=== PATIENT | female | born 1995 | race Caucasian/White ===

== ENCOUNTER 2018-06-28 07:44 | Inpatient (IN) ==
[2018-06-28] MEDS ORDERED: RINGER'S SOLUTION,LACTATED 1,000 ML IV ONE (07:58)
[2018-06-28] MEDS ORDERED: PENICILLIN G POTASSIUM 5 MILLIONUNT in DEXTROSE 5 % IN WATER 100 ML IV ONE ×2 (07:58)
[2018-06-28] MEDS ORDERED: OXYTOCIN/DEXTROSE 5%-WATER 30 UNITS/500 ML BAG IV ONE (07:58)
[2018-06-28 08:16] LABS: Hematocrit 38.7 % (37.0-47.0); Hemoglobin 12.8 gm/dL (12.5-16.0); Mean Cell Volume 94.2 fl (78-100); Mean Corpuscular Hemoglobin 31.1 pg (27-31); Mean Corpuscular Hgb Conc 33.1 g/dl (32-36); Mean Platelet Volume 10.7 fl (8-12.5); Neutrophil # 5.8 K/mm3 (1.3-6.0); Neutrophil % 86.3 % (42-75.0); Platelet Count 202 K/mm3 (150-450); Red Blood Count 4.11 M/mm3 (4.2-5.4); Red Cell Distribution Width 13.1 % (11.5-14.0); White Blood Count 6.7 K/mm3 (4.0-10.5)
[2018-06-28 09:28] LABS: Cocaine Ur Negative (NEGATIVE); Urine Barbiturate Negative (NEGATIVE); Urine Benzodiazepines Negative (NEGATIVE); Urine Opiates Negative (NEGATIVE); Urine PCP Negative (NEGATIVE); Urine THC Negative (NEGATIVE)
--- NOTE | 2018-06-28 10:21 | HP ---
Chief Complaint - Chief Complaint Date of Service: 06/28/18 Chief Complaint: water broke History of Present Illness: 22 yo, CF, G1 at 40.0 weeks by a ultrasound at 7.6 weeks with EDC of 06/28/18. Patient presented to the birthplace believing her water has broken. She woke up this morning feeling gush of fluid. Denies bleeding or contractions. is uncomplicated except history of hypothyroidism on levothyroxine 50 mcg daily and morbid obesity with a BMI of 48.1. At the birthplace, rupture of membrane was confirmed by amniotest. Her exam was 1 cm, 60% and -3. Presentation was cephalic by a bedside u/s. Her GBS was positive per urine culture. Blood type: O positive. Rubella: immune Medical History (Last Reviewed 05/07/18 @ 09:07 by Elias Wolfe RN) Irregular menses Onset Date: ~11/15/17 Acquired hypothyroidism Onset Date: 11/15/17 BMI 45.0-49.9, adult Onset Date: ~11/15/17 Bacterial vaginosis Onset Date: Unknown Dog bite of face Onset Date: ~2001 stitches H/O wisdom tooth extraction Onset Date: ~2016 Family History: Family History (Last Reviewed 05/07/18 @ 09:07 by Elias Wolfe RN) Aunt Cancer breast Grandmother Cancer breast Father Diabetes Mother Cancer cervical Social History: Preferred Language Yakut Smoking Status Never smoker (Last Updated 06/27/18 @ 11:06 by Jelena Faustin MD) Social History: denied use of tobacco, alcohol or drug. Review Of Systems (GEN) - Review of Systems Genitourinary: Present: Other - leaking fluid Misc: All systems neg except as marked Allergies/Adverse Reactions: Allergies Allergy/AdvReac Type Severity Reaction Status Date / Time No Known Allergies Allergy Verified 06/27/18 10:48 Home Medications: HOME MEDICATIONS vitamin,calcium,pvovfucc-wqek-gswsr acid tablet 1 tab PO DAILY 01/03/18 [Last Taken 06/27/18 08:00] levothyroxine 50 mcg tablet 50 mcg PO DAILY #30 tab 03/21/18 [Last Taken 06/27/18 22:00] Exam - Exam Vital Signs: Vital Signs - Last Taken Temp 36 C 06/28/18 08:54 Pulse 100 06/28/18 08:54 Resp 18 06/28/18 08:54 BP 137/77 06/28/18 08:54 Pulse Ox 97 06/28/18 08:54 Constitutional: Present: Alert, Oriented x3, Cooperative, No distress Neck: Present: supple Back Exam: Present: no CVA tenderness Respiratory: Present: lungs clear, normal breath sounds, no respiratory distress Cardiovascular/Chest: Present: regular rate, rhythm, no murmur Abdomen: Present: soft, nontender, nondistended, other - gravid /Rectal: Present: Other - cervix: 1 cm, 60% and -3 Extremity: Present: normal range of motion, no calf tenderness, lower extremity edema - 1+ bilaterally Skin Exam: Present: normal color, warm/dry, no cyanosis Appearance: Present: appropriate appearance Eye contact: Present: cooperative, good eye contact, normal speech Diagnostic Studies: Abnormal Lab Results 06/28/18 Range/Units 08:10 RBC 4.11 L (4.2-5.4) M/mm3 MCH 31.1 H (27-31) pg Neutrophils % 86.3 H (42-75.0) % Lymphocytes % 7.6 L (20-51) % Lymphocytes # 0.51 L (1.5-3.5) k/mm3 Laboratory Results WBC 6.7 K/mm3 (4.0-10.5) 06/28/18 08:10 RBC 4.11 M/mm3 (4.2-5.4) L 06/28/18 08:10 Hgb 12.8 gm/dL (12.5-16.0) 06/28/18 08:10 Hct 38.7 % (37.0-47.0) 06/28/18 08:10 MCV 94.2 fl (78-100) 06/28/18 08:10 MCH 31.1 pg (27-31) H 06/28/18 08:10 MCHC 33.1 g/dl (32-36) 06/28/18 08:10 RDW 13.1 % (11.5-14.0) 06/28/18 08:10 Plt Count 202 K/mm3 (150-450) 06/28/18 08:10 MPV 10.7 fl (8-12.5) 06/28/18 08:10 Immature Gran % (Auto) 0.40 % (0.001-0.429) 06/28/18 08:10 Immature Gran # (Auto) 0.03 K/mm3 (0.000-0.0310) 06/28/18 08:10 Neutrophils % 86.3 % (42-75.0) H 06/28/18 08:10 Lymphocytes % 7.6 % (20-51) L 06/28/18 08:10 Monocytes % 5.7 % (0.0-9) 06/28/18 08:10 Eosinophils % 0.0 % (0.0-3.0) 06/28/18 08:10 Basophils % 0.0 % (0.0-1.0) 06/28/18 08:10 Nucleated RBC % 0.0 k/mm3 (0-1) 06/28/18 08:10 Neutrophils # 5.8 K/mm3 (1.3-6.0) 06/28/18 08:10 Lymphocytes # 0.51 k/mm3 (1.5-3.5) L 06/28/18 08:10 Monocytes # 0.4 k/mm3 (0.0-1.0) 06/28/18 08:10 Eosinophils # 0.0 k/mm3 (0.0-0.7) 06/28/18 08:10 Absolute Basophils 0.0 k/mm3 (0.0-0.1) 06/28/18 08:10 Urine Opiates Screen Negative (NEGATIVE) 06/28/18 09:19 Barbiturate Screen Negative (NEGATIVE) 06/28/18 09:19 Ur Phencyclidine Scrn Negative (NEGATIVE) 06/28/18 09:19 Urine Amphetamine Negative (NEGATIVE) 06/28/18 09:19 U Benzodiazepines Scrn Negative (NEGATIVE) 06/28/18 09:19 Urine Cocaine Screen Negative (NEGATIVE) 06/28/18 09:19 Urine Marijuana (THC) Negative (NEGATIVE) 06/28/18 09:19 Blood Type O Positive 06/28/18 08:10 Antibody Screen Negative 06/28/18 08:10 FHR: reassuring, cat I, 125s, with accels and no decels. [place]: occasional contractions. Assessment/Plan - Narrative Narrative: A: 22 yo, CF, G1 at 40 weeks, with SROM, dilated to 1 cm, GBS postive. Morbid obesity BMI 48. Plan: pitocin for induction of labor. penicillin for GBS prophylaxis. may have epidural if desired. Joni Simmons MD
[2018-06-28] MEDS: PENICILLIN G POTASSIUM 2.5 MILLIONUNT in DEXTROSE 5 % IN WATER 100 ML IV SCH ×8 (13:00→23:50)
[2018-06-28] MEDS ORDERED: ONDANSETRON HCL/PF 2 MG/ML VIAL IV PRN ×2 (13:29→14:43)
[2018-06-28] MEDS ORDERED: BUPIVACAINE HCL/0.9 % NACL/PF 250 ML EP PRN (14:43)
[2018-06-28] MEDS ORDERED: NALOXONE HCL 1 MG/1 ML SYRG IV PRN (14:43)
[2018-06-28] MEDS ORDERED: fentaNYL CITRATE/PF 50 MCG/ML AMPUL IT SCH (14:45)
--- NOTE | 2018-06-28 15:49 | ANES ---
Anesthesia Pre Procedure Eval Vitals/Labs: Last Vital Signs Temp 36 C 06/28/18 08:54 Pulse 100 06/28/18 08:54 Resp 18 06/28/18 08:54 BP 137/77 06/28/18 08:54 Pulse Ox 97 06/28/18 08:54 HOME MEDICATIONS vitamin,calcium,qvcogaif-kwnd-ldqyt acid tablet 1 tab PO DAILY 01/03/18 [Last Taken 06/27/18 08:00] levothyroxine 50 mcg tablet 50 mcg PO DAILY #30 tab 03/21/18 [Last Taken 06/27/18 22:00] Allergies/Adverse Reactions: Allergies Allergy/AdvReac Type Severity Reaction Status Date / Time No Known Allergies Allergy Verified 06/27/18 10:48 - Planned Procedure Planned Procedure: ACTIVE LABOR Medication List Reviewed:: Yes Allergies Verified: Yes Medical History (Last Reviewed 06/28/18 @ 15:48 by Levi Olivia CRNA) Irregular menses Onset Date: ~11/15/17 Acquired hypothyroidism Onset Date: 11/15/17 BMI 45.0-49.9, adult Onset Date: ~11/15/17 Bacterial vaginosis Onset Date: Unknown Dog bite of face Onset Date: ~2001 stitches H/O wisdom tooth extraction Onset Date: ~2016 Family History (Last Reviewed 06/28/18 @ 15:48 by Levi Olivia CRNA) Aunt Cancer breast Grandmother Cancer breast Father Diabetes Mother Cancer cervical - Family Anesthesia History Family History:: no untoward family reactions to anesthesia - Airway/Neck/Teeth Within Normal Limits:: Yes Teeth Condition: intact Neck Exam: full range of motion Mallampatti Score: 2 Thyromental (T-M) distance: > 6 cm Mandibulo Hyoid distance: > 3 cm - Respiratory Respiratory Physical: lungs clear Smoking Status: Never smoker Sleep Apnea currently treated: No Sleep Apnea by current assessment: No - Cardiovascular Tolerate Activity: Fair Heart Sounds: S1 & S2, Regular - Anesthesia Assessment and Plan ASA Class: PS, II, E Anesthesia Type Plan: Epidural
--- NOTE | 2018-06-28 15:49 | ANES ---
Post Anesthesia Discharge - Transfer of Care Transfer of Care handoff given to nurse: Yes - Anesthesia Post Op Note Anesthesia Post Op Note: Care transferred to OB RN
--- NOTE | 2018-06-28 15:49 | ANES ---
Post Anesthesia Assessment - Vital Signs Vitals: Last Vital Signs Temp 36 C 06/28/18 08:54 Pulse 100 06/28/18 08:54 Resp 18 06/28/18 08:54 BP 137/77 06/28/18 08:54 Pulse Ox 97 06/28/18 08:54 Airway Patency: Normal - Mental Status Level Of Consciousness: Awake - Pain Level Pain Score: 2 - N/V Assessment Nausea/Vomiting Presence: None Dehydration:: No
--- NOTE | 2018-06-28 15:51 | ANES ---
Anesthesia Procedure Note Procedure Note: ANESTHESIA PROCEDURE NOTE Date of Procedure: [] 06/28/2018 Time of procedure:[]. 1520 Performed by: Willy Olivia CRNA Rn Pain Management: None. Preprocedure diagnosis: Active labor. Post procedure diagnosis: Same. Procedure: Insertion of labor epidural. Indications: The patient is a [22] -year-old [prima para] female in active labor requesting labor epidural for pain management. Findings: See below. Details of the procedure: The patient was placed in a sitting position. Back was prepped with DuraPrep. Patient was then draped in a sterile fashion. Lidocaine 1% was infiltrated to the skin and subcutaneous tissues at the level of the L3 4 interspace. The epidural space was identified using a 18-gauge Tuohy needle with eshy-[id number] technique. 20 mcg fentanyl was given intrathecally using a 27 ga. spinal needle. Epidural catheter was inserted without difficulty. Negative test dose was elicited using 5 mL of 1.5% preservative-free lidocaine plus epinephrine 1 200,000. The epidural catheter was then taped and secured in place. EBL: Minimal. Fluids: N/A. Specimen: N/A. Post procedure condition: The patient tolerated the procedure well. No complications were noted. Thank you for this consultation. Cohen CRNA
[2018-06-28] MEDS ORDERED: RINGER'S SOLUTION,LACTATED 1,000 ML IV PRN (17:20)
[2018-06-29] MEDS ORDERED: DEXTROSE 5%-LACTATED RINGERS 1,000 ML IV PRN (00:05)
[2018-06-29] MEDS ORDERED: LIDOCAINE HCL 50 ML VIAL ONE (00:55)
--- NOTE | 2018-06-29 01:59 | PN ---
Subjective - Date and Time Seen Date: 06/29/18 Subjective Narrative: indication for : patient spontaneously ruptured membrane early yesterday morning. Pitocin started for induction and augmentation. Progressed to complete at 22:15 without complications and pushed for three hours without obvious descent. head with large catput and remained at 0 to +! station. Primary recommended for failure to descent. Patient also exhausted. Patient agreed to go for primary . Risks, benefits and alternatives discussed. Patient accepted the risks for . Joni Simmons MD Objective - Vitals Vitals: Last Vital Signs Temp 36 C 06/28/18 08:54 Pulse 100 06/28/18 08:54 Resp 18 06/28/18 08:54 BP 137/77 06/28/18 08:54 Pulse Ox 97 06/28/18 08:54 - Abnormal Lab Findings Abnormal Lab Findings: Abnormal Lab Results 06/28/18 Range/Units 08:10 RBC 4.11 L (4.2-5.4) M/mm3 MCH 31.1 H (27-31) pg Neutrophils % 86.3 H (42-75.0) % Lymphocytes % 7.6 L (20-51) % Lymphocytes # 0.51 L (1.5-3.5) k/mm3
[2018-06-29] MEDS ORDERED: ceFAZolin SODIUM 1 GM VIAL IV ONE ×2 (02:02→02:30)
[2018-06-29] MEDS ORDERED: OXYTOCIN 20 UNITS in RINGER'S SOLUTION,LACTATED 1,000 ML IV ONE (02:27)
--- NOTE | 2018-06-29 02:39 | ANES ---
Anesthesia Pre Procedure Eval Vitals/Labs: Last Vital Signs Temp 36 C 06/28/18 08:54 Pulse 100 06/28/18 08:54 Resp 18 06/28/18 08:54 BP 137/77 06/28/18 08:54 Pulse Ox 97 06/28/18 08:54 HOME MEDICATIONS vitamin,calcium,eaigpnlk-tdrl-mlnxd acid tablet 1 tab PO DAILY 01/03/18 [Last Taken 06/27/18 08:00] levothyroxine 50 mcg tablet 50 mcg PO DAILY #30 tab 03/21/18 [Last Taken 06/27/18 22:00] Allergies/Adverse Reactions: Allergies Allergy/AdvReac Type Severity Reaction Status Date / Time No Known Allergies Allergy Verified 06/27/18 10:48 - Planned Procedure Planned Procedure: Medication List Reviewed:: Yes Allergies Verified: Yes Medical History (Last Reviewed 06/29/18 @ 02:38 by Levi Olivia CRNA) Irregular menses Onset Date: ~11/15/17 Acquired hypothyroidism Onset Date: 11/15/17 BMI 45.0-49.9, adult Onset Date: ~11/15/17 Bacterial vaginosis Onset Date: Unknown Dog bite of face Onset Date: ~2001 stitches H/O wisdom tooth extraction Onset Date: ~2016 Family History (Last Reviewed 06/29/18 @ 02:38 by Levi Olivia CRNA) Aunt Cancer breast Grandmother Cancer breast Father Diabetes Mother Cancer cervical - Family Anesthesia History Family History:: no untoward family reactions to anesthesia - Airway/Neck/Teeth Within Normal Limits:: Yes Teeth Condition: intact Neck Exam: full range of motion Mallampatti Score: 2 Thyromental (T-M) distance: > 6 cm Mandibulo Hyoid distance: > 3 cm - Respiratory Respiratory Physical: lungs clear Smoking Status: Never smoker Sleep Apnea currently treated: No Sleep Apnea by current assessment: No - Cardiovascular Tolerate Activity: Fair Heart Sounds: S1 & S2, Regular - Anesthesia Assessment and Plan ASA Class: PS, II, E Anesthesia Type Plan: Epidural Planned difficult intubation/equipment available: No
[2018-06-29] MEDS ORDERED: ONDANSETRON HCL/PF 2 MG/ML VIAL IV PRN (04:21)
[2018-06-29] MEDS ORDERED: SENNOSIDES 8.6 MG TABLET PO PRN (04:21)
[2018-06-29] MEDS ORDERED: SIMETHICONE 80 MG TAB.CHEW PO PRN (04:21)
[2018-06-29] MEDS ORDERED: oxyCODONE HCL/ACETAMINOPHEN 1 TAB TABLET PO PRN (04:21)
[2018-06-29] MEDS ORDERED: BISACODYL 10 MG SUPP.RECT RC PRN (04:21)
--- NOTE | 2018-06-29 04:31 | OR ---
Operative Report - Dictated Report Narrative: DATE OF PROCEDURE: 06/29/2018 PROCEDURE: 1. Primary low transverse section ANESTHESIA: Epidural. PREOPERATIVE DIAGNOSES: 1. Intrauterine at 40 1/7 weeks 2. Failure to descent despite pushing for over 3 hours 3. Morbid obesity BMI 48.1, 127 kg POSTOPERATIVE DIAGNOSES: 1. Intrauterine at 40 1/7 weeks 2. Failure to descent despite pushing for over 3 hours 3. Morbid obesity BMI 48.1, 127 kg SURGEON: Joni Simmons M.D. NUT SORTER OPERATOR: Karly FINDINGS: 1. Male infant in cephalic direct OP presentation. Dark meconium fluid. Weight 3806 g, 8/9, Time of delivery: 03:16 2. Normal uterus, and normal bilateral ovaries and tubes SPECIMENS: placenta DRAIN: Díaz to gravity. URINE OUTPUT: 250 ml. BLOOD LOSS: 600 ml. IV FLUIDS: 1700 ml COMPLICATIONS: None. Description of Operative Procedure: The patient consented prior to the operation and was taken to the operating room. Epidural anesthesia was redosed. The patient was then placed in the dorsal supine position with leftward tilt. Sequential compression device was placed on the lower extremities and a Díaz catheter was already in place. Three grams of Ancef was given at time of epidural redosing. The abdomen was prepped with Chloraprep and draped in the usual sterile fashion. A time-out procedure was conducted to confirm the correct patient for the correct procedure. Anesthesia was tested and was adequate. A Pfannenstiel incision was marked and made with a scalpel. The incision was carried through the subcutaneous layer to the fascia. The fascia was nicked at the midline and extended laterally with Deleon scissors. The upper edge of the f ascia incision was grasped with two Yolanda clamps, elevated, and the underlying rectus muscles were dissected off. The Yolanda clamps were repositioned to the lower edge of the fascia incision, which was tented up and dissected off from the rectus muscles. The rectus muscles were held up with Allis clamp and the midline between the rectus muscles was dissected sharply with the scalpel. The peritoneum was entered bluntly with a finger. The peritoneal incision was extended superiorly and inferiorly with good visualization of the bladder. A bladder blade was inserted. The vesicouterine peritoneum was identified, grasped with a smooth pick-ups, and entered sharply with Matzenbaum scissors. The incision was extended laterally, and a bladder flap was created. The bladder blade was repositioned. The lower uterine segment was incised in a transverse fashion with the scalpel. The incision was extended laterally by stretching. The bladder blade was removed. The amniotic sac was ruptured with large amount of dark meconium fluid. The baby was in cephalic direct OP presentation. The head was elevated through the incision. Fundal pressure was applied and the baby was delivered atraumatically. Baby cried immediately after . The cord was clamped and cut. The baby was handed off to the collar starcher and nurse in attendance. Cord blood was obtained. The placenta was removed manually. The uterus was exteriorized, and cleared off clots and membrane. The uterine incision was closed with 0 vicryl in a running-lock fashion with good hemostasis and reapproximation. The posterior cul-de-sac was cleared off clots and fluid. The uterus was returned to the abdomen. The gutters were cleared of blood clots and fluid. The peritoneum was closed with 2-0 Vicryl. The rectus muscle was inspected and found hemostatic. The lower part of the rectus muscles were brought together with two figure of eight sutures to keep the bladder from exposing under the fascia. The fascia was reapproximated with #1 Vicryl in running fashion. The subcutaneous layer was irrigated with saline. The subcutaneous layer was closed with 2-0 vicryl interruptedly. The skin was closed with 3-0 Monocryl suture in a subcuticular fashion. Benzoin was applied to the incision edges. The incision was covered with Steri strips, Telfa, ABD and adhesive pressure dressing tape. The patient tolerated the procedure well. Sponge, lap, needle and instrument counts were correct x 2. The patient was taken to the recovery room in stable condition. Joni Simmons MD History for MU Definition: * The number of deliveries resulting in a live the patient experienced prior to current hospitalization * The previous delivery of live twins or any live multiple gestation is considered one live event. *If primagravida or nulliparous is documented select zero for the number of previous live births. Live Events: 0
--- NOTE | 2018-06-29 04:38 | ANES ---
Post Anesthesia Discharge - Transfer of Care Transfer of Care handoff given to nurse: Yes - Discharge from PACU Discharge from PACU when meets criteria: Yes
--- NOTE | 2018-06-29 04:39 | ANES ---
Post Anesthesia Assessment - Vital Signs Vitals: Last Vital Signs Temp 36.8 C 06/29/18 04:20 Pulse 81 06/29/18 04:35 Resp 20 06/29/18 04:35 BP 87/53 L 06/29/18 04:35 Pulse Ox 98 06/29/18 04:35 Airway Patency: Normal - Mental Status Level Of Consciousness: Awake - Pain Level Pain Score: 2 - N/V Assessment Nausea/Vomiting Presence: None Dehydration:: No
[2018-06-29] MEDS: IBUPROFEN 800 MG TABLET PO PRN ×3 (06:03→22:41)
[2018-06-29] MEDS: oxyCODONE HCL/ACETAMINOPHEN 1 TAB TABLET PO PRN ×3 (06:04→22:41)
[2018-06-29] MEDS: PENICILLIN G POTASSIUM 2.5 MILLIONUNT in DEXTROSE 5 % IN WATER 100 ML IV SCH ×4 (09:38→13:23)
[2018-06-29] MEDS: DOCUSATE SODIUM 100 MG CAPSULE PO SCH ×2 (09:39→20:43)
[2018-06-30] MEDS: IBUPROFEN 800 MG TABLET PO PRN ×3 (04:39→19:38)
[2018-06-30] MEDS: oxyCODONE HCL/ACETAMINOPHEN 1 TAB TABLET PO PRN ×3 (04:39→19:38)
[2018-06-30] MEDS: DOCUSATE SODIUM 100 MG CAPSULE PO SCH ×3 (09:04→21:00)
--- NOTE | 2018-06-30 11:42 | PN ---
Subjective - Date and Time Seen Date: 06/30/18 Subjective Narrative: post op day 1, s/p primary c/s for failure to descent doing well. ambulating and tolerating diet well. . normal lochia. pain controlled. Objective - Vitals Vitals: Last Vital Signs Temp 35.9 C L 06/30/18 07:24 Pulse 64 06/30/18 07:24 Resp 16 06/30/18 07:24 BP 106/58 06/30/18 07:24 Pulse Ox 97 06/30/18 07:24 - Exam Constitutional: Present: Alert, Oriented x3, Cooperative Respiratory: Present: no respiratory distress Cardiovascular/Chest: Present: normal peripheral pulses Abdomen: Present: soft, nondistended, other - fundus firm and below umbilicus. incision dry and clean with steri strips Extremity: Present: normal range of motion, no pedal edema, no calf tenderness Skin Exam: Present: normal color, warm/dry, no cyanosis Appearance: Present: appropriate appearance Eye contact: Present: cooperative, good eye contact, normal speech Cauti Physician Documentation - Urinary Catheter Management Urethral (Díaz) Date of Removal: 06/29/18 Time of Removal: 14:30 Assessment/Plan Plan Narrative: A: post op day 1, s/p primary c/s, stable and well. Plan: rountine post op care. ambulation encouraged. Joni Simmons MD
[2018-07-01] MEDS: oxyCODONE HCL/ACETAMINOPHEN 1 TAB TABLET PO PRN (04:15)
[2018-07-01] MEDS: IBUPROFEN 800 MG TABLET PO PRN (04:15)
[2018-07-01] MEDS: DOCUSATE SODIUM 100 MG CAPSULE PO SCH ×2 (10:21→21:27)
--- NOTE | 2018-07-01 18:13 | PN ---
Subjective - Date and Time Seen Date: 07/01/18 Time: 18:12 Objective - Vitals Vitals: Last Vital Signs Temp 36.3 C 07/01/18 16:17 Pulse 68 07/01/18 16:17 Resp 18 07/01/18 16:17 BP 113/61 07/01/18 16:17 Pulse Ox 100 07/01/18 16:17 Patient denies complaints. Ambulating well. Tolerating regular diet. Pain well controlled. Lochia wnl. Abdomen - soft, appropriately tender Incision - clean, dry, intact Uterus - firm, at umbilicus -2 No calf tenderness Impression: Post op day #2 s/p primary section. Morbid obesity-stable Plan: Continue routine post-operative/ care Cauti Physician Documentation - Urinary Catheter Management Urethral (Díaz) Date of Removal: 06/29/18 Time of Removal: 14:30
[2018-07-02 08:53] VITALS: BP 118/77
--- NOTE | 2018-07-02 09:42 | PN ---
Subjective - Date and Time Seen Date: 07/02/18 Time: 09:41 Objective - Vitals Vitals: Last Vital Signs Temp 36.8 C 07/02/18 08:53 Pulse 72 07/02/18 08:53 Resp 16 07/02/18 08:53 BP 118/77 07/02/18 08:53 Pulse Ox 98 07/02/18 08:53 Patient denies complaints. Ambulating without difficulty. Tolerating regular diet. Pain well controlled. Lochia wnl. Abdomen - soft, appropriately tender Incision - clean, dry, intact Uterus - firm, at umbilicus -3 No calf tenderness Impression: Post op day #3 s/p primary section. Plan: Routine discharge instructions. Cauti Physician Documentation - Urinary Catheter Management Urethral (Díaz) Date of Removal: 06/29/18 Time of Removal: 14:30
== END 2018-07-02 13:50 | disposition home or self-care (01) | DRG 787 ==
LOC: OB 07:44 → MS 07-01 23:44
PROVIDERS: ADMIT Obstetrics & Gynecology; ATTEND Obstetrics & Gynecology
CPT/HCPCS: 36415; 59025; 80307; 85025; 86850; 86900; 88307; J2405